=== PATIENT | male | born 1945 ===

== ENCOUNTER 2021-02-28 06:16 | Observation (INO) ==
[~2021-02-28 06:16] MED LIST: Buffered Lidocaine 1% SYRIN 1 ml INTRADERM ONE; Lactated Ringers 1000 ml BAG 1,000 ML IV SCH
[2021-02-28] MEDS ORDERED: ceFAZolin 2 GM PREMIX 2 GM/50 ML BAG ONE (06:47)
[2021-02-28] MEDS ORDERED: Glycopyrrolate IV 0.2 MG/ML 1 ML VIAL ONE ×2 (07:27→08:22)
[2021-02-28] MEDS ORDERED: Propofol 10 MG/ML 20 ML BTL ONE ×2 (07:27→10:06)
[2021-02-28] MEDS ORDERED: HYDROmorphone 1 MG/1 ML SYRINGE ONE ×2 (07:27→10:36)
[2021-02-28] MEDS ORDERED: Ondansetron 4 mg VIAL 2 MG/ML 2 ml VIAL ONE ×2 (07:29→11:30)
[2021-02-28] MEDS ORDERED: Rocuronium 50 mg VIAL 10 mg/ml 5 ml VIAL (50 mg) ONE (07:29)
[2021-02-28] MEDS ORDERED: Dexamethasone IV 4 MG/ML VIAL 1 ml VIAL ONE (07:29)
[2021-02-28] MEDS ORDERED: Lidocaine 2% PF 5 ML VIAL ONE (07:30)
[2021-02-28] MEDS ORDERED: Phenylephrine IV 10 MG/ML 1 ml VIAL ONE (07:32)
[2021-02-28] MEDS ORDERED: ROPIVACAINE 5 MG/ML 30 ML BTL (0.5%) ONE (07:38)
[2021-02-28] MEDS ORDERED: fentaNYL 100 mcg/2 ml 50 MCG/ML VIAL ONE (07:54)
[2021-02-28] MEDS ORDERED: Naloxone 0.4 mg VIAL 0.4 mg/ml 1 ml VIAL IV PRN (08:47)
[2021-02-28] MEDS ORDERED: DiMENhydriNATE IV 50 mg/ml 1 ml VIAL IV PUSH PRN (08:47)
[2021-02-28] MEDS ORDERED: diPHENhydraMINE IV 50 MG/ML 1 ml VIAL (BENADRYL) IV PRN ×2 (08:47→10:26)
[2021-02-28] MEDS ORDERED: EPHEDrine (Pressors) 50 MG/ML VIAL ONE (09:08)
[2021-02-28] MEDS ORDERED: Magnesium Hydroxide LIQ 30 ML UDC PO PRN (10:26)
[2021-02-28] MEDS ORDERED: Lactulose 30 ml UDC PO PRN (10:26)
[2021-02-28] MEDS ORDERED: Ondansetron 4 mg VIAL 2 MG/ML 2 ml VIAL IV PRN (10:26)
[2021-02-28] MEDS ORDERED: Ondansetron ODT 4 mg TAB 4 MG TAB PO PRN (10:26)
[2021-02-28] MEDS ORDERED: Morphine 2 MG/ML SYRINGE IV PRN (10:26)
[2021-02-28] MEDS ORDERED: diPHENhydraMINE 25 mg TAB PO PRN (10:26)
[2021-02-28] MEDS: HYDROmorphone 1 MG/1 ML SYRINGE IV PRN ×5 (10:36→11:28)
[2021-02-28] MEDS ORDERED: Lactated Ringers 1000 ml BAG 1,000 ML IV SCH (11:00)
[2021-02-28] MEDS ORDERED: ceFAZolin 1 GM ADVAN 1 GM in NS 0.9% 50 ML 50 ML IVPB SCH (16:30)
[2021-02-28 17:54] VITALS: BP 129/83
[2021-02-28] MEDS ORDERED: Magnesium Hydroxide LIQ 30 ML UDC PO SCH (21:00)
[2021-03-01] MEDS ORDERED: Vitamin THERAPEUTIC TAB PO SCH (09:00)
== END 2021-02-28 19:20 | disposition home or self-care (01) ==
LOC: OR 06:16 → SSU 06:16
PROVIDERS: ADMIT Orthopaedic Surgery Adult Reconstructive Orthopaedic Surgery; ATTEND Orthopaedic Surgery Adult Reconstructive Orthopaedic Surgery